=== PATIENT | female | born 1985 | race Two or more races ===

== ENCOUNTER 2023-01-24 09:44 | Emergency (ER) | payer OTHER ==
[~2023-01-24] VITALS: Ht 162.6 cm; Wt 103.0 kg
== END 2023-01-24 12:30 | disposition home or self-care (01) ==
LOC: ER 09:44
PROVIDERS: Emergency Medicine
DX: U07.1 COVID-19 (principal)

== ENCOUNTER 2023-06-21 19:21 | Emergency (ER) | payer OTHER ==
[~2023-06-21] VITALS: Ht 162.6 cm; Wt 104.3 kg
== END 2023-06-21 21:13 | disposition home or self-care (01) ==
LOC: ER 19:21
DX: M54.32 Sciatica, left side (principal)